=== PATIENT | male | born 1950 | race Caucasian/White ===

== ENCOUNTER 2021-09-23 08:59 | Day surgery (SDC) | payer MEDICARE, BC ==
[2021-09-18 12:39] VITALS: BMI 36.2
[2021-09-23] MEDS ORDERED: Heparin 10,000 UNITS/ 10 ML VIAL ONE (09:28)
[2021-09-23] MEDS ORDERED: Isoproterenol 0.2 MG/1 ML AMP ONE (09:28)
[2021-09-23] MEDS ORDERED: Heparin 25,000 units/D5W 500 ML ONE (09:28)
[2021-09-23] MEDS ORDERED: Protamine Sulfate 50 MG/5 ML VIAL ONE (09:28)
[2021-09-23] MEDS ORDERED: Fentanyl 100 MCG/2 ML VIAL ONE (12:32)
[2021-09-23] MEDS ORDERED: Lidocaine 1% (PF) 30 ML VIAL ONE (12:33)
[2021-09-23] MEDS ORDERED: Phenylephrine 10 MG/ML VIAL ONE (12:34)
[2021-09-23] MEDS ORDERED: Rocuronium Bromide 10 MG/ML (10ML VIAL) ONE (13:23)
[2021-09-23] MEDS ORDERED: PROPOFOL 200 MG/20 ML VIAL ONE (13:23)
[2021-09-23] MEDS ORDERED: Lidocaine 1% PF 5 ML VIAL ONE (13:23)
[2021-09-23] MEDS ORDERED: Sucralfate 1 GM TAB PO SCH (17:30)
== END 2021-09-23 20:55 | disposition home or self-care (01) ==
LOC: SDC 08:59
PROVIDERS: ATTEND Internal Medicine Cardiovascular Disease
PROC: B244ZZ3 Ultrasonography of Right Heart, Intravascular (ICD-10-PCS; principal; 2021-09-23)
PROC: 02583ZZ Destruction of Conduction Mechanism, Percutaneous Approach (ICD-10-PCS; 2021-09-23)
PROC: 02K83ZZ Map Conduction Mechanism, Percutaneous Approach (ICD-10-PCS; 2021-09-23)
PROC: 4A023FZ Measurement of Cardiac Rhythm, Percutaneous Approach (ICD-10-PCS; 2021-09-23)
PROC: 4A0234Z Measurement of Cardiac Electrical Activity, Percutaneous Approach (ICD-10-PCS; 2021-09-23)
DX: I48.19 Other persistent atrial fibrillation (principal); I48.92 Unspecified atrial flutter; I45.10 Unspecified right bundle-branch block; I11.9 Hypertensive heart disease without heart failure; I08.3 Combined rheumatic disorders of mitral, aortic and tricuspid valves; E78.5 Hyperlipidemia, unspecified; G47.33 Obstructive sleep apnea (adult) (pediatric); Z85.6 Personal history of leukemia; Z86.73 Personal history of transient ischemic attack (TIA), and cerebral infarction without residual deficits; Z87.891 Personal history of nicotine dependence; Z79.01 Long term (current) use of anticoagulants; Z79.899 Other long term (current) drug therapy; Z88.0 Allergy status to penicillin; Z88.8 Allergy status to other drugs, medicaments and biological substances
CPT/HCPCS: 85347; 92960; 93613; 93623; 93655; 93656; 93657; 93662; C1732 ×2; C1760; 93005; C1759; J1644; J2001; J2370; J2704; J2720; J3010

== ENCOUNTER 2021-11-04 08:58 | Day surgery (SDC) | payer MEDICARE, BC ==
[2021-11-03 11:19] VITALS: BMI 36.2
[2021-11-04] MEDS ORDERED: PROPOFOL 40 ML ONE (11:19)
[2021-11-04] MEDS ORDERED: Lidocaine 1% PF 5 ML VIAL ONE ×2 (11:19→11:21)
[2021-11-04] MEDS ORDERED: PROPOFOL 200 MG/20 ML VIAL ONE (11:21)
== END 2021-11-04 12:49 | disposition home or self-care (01) ==
LOC: SDC 08:58
PROVIDERS: ATTEND Internal Medicine Cardiovascular Disease
PROC: 5A2204Z Restoration of Cardiac Rhythm, Single (ICD-10-PCS; principal; 2021-11-04)
DX: I48.4 Atypical atrial flutter (principal); I11.9 Hypertensive heart disease without heart failure; E78.00 Pure hypercholesterolemia, unspecified; I45.10 Unspecified right bundle-branch block; E78.5 Hyperlipidemia, unspecified; G47.33 Obstructive sleep apnea (adult) (pediatric); Z85.6 Personal history of leukemia; Z86.73 Personal history of transient ischemic attack (TIA), and cerebral infarction without residual deficits; Z86.79 Personal history of other diseases of the circulatory system; Z87.891 Personal history of nicotine dependence; Z79.01 Long term (current) use of anticoagulants; Z79.899 Other long term (current) drug therapy; Z88.0 Allergy status to penicillin; Z88.8 Allergy status to other drugs, medicaments and biological substances; Z98.890 Other specified postprocedural states
CPT/HCPCS: 92960; 93005; 93010; J2704

== ENCOUNTER 2023-01-19 06:12 | Day surgery (SDC) | payer MEDICARE, BC ==
[2023-01-17 10:02] VITALS: BMI 36.2
[2023-01-17 10:58] LABS: Hematocrit 45.6 % (38.8-50.0); Hemoglobin 15.1 g/dL (13.5-17.5); Mean Corpuscular HGB CONC 33.1 g/dL (32.0-36.0); Mean Corpuscular Hemoglobin 30.3 pg (27.0-33.0); Mean Corpuscular Volume 91.6 fl (81.2-95.1); Mean Platelet Volume 10.8 fl (7.4-10.4); Platelet Count 200 10x3/uL (150-450); RBC Distribution Width 13.4 % (11.5-14.5); Red Blood Cell (RBC) Count 4.98 10x6/uL (4.32-5.72); White Blood Cell (WBC) Count 23.4 10x3/uL (3.5-10.5)
[2023-01-17 11:28] LABS: Anion Gap 13 mmol/L (10-20); BUN (Urea Nitrogen) 13 mg/dL (8.4-25.7); Calc. Creatinine Clearance 114 mL/min (70-130); Calcium 9.2 mg/dL (7.8-10.44); Carbon Dioxide 28 mmol/L (23-31); Chloride 103 mmol/L (98-107); Estimated GFR 84; Glucose 100 mg/dL (83-110); Potassium 3.9 mmol/L (3.5-5.1); Sodium 140 mmol/L (136-145)
[2023-01-17 11:32] LABS: PTT 31.6 sec (22.0-33.0); Prothrombin Time 10.9 sec (9.5-12.1)
[2023-01-19] MEDS ORDERED: Heparin 25,000 units/D5W 500 ML ONE (07:04)
[2023-01-19] MEDS ORDERED: Heparin 10,000 UNITS/ 10 ML VIAL ONE (07:04)
[2023-01-19] MEDS ORDERED: Protamine Sulfate 50 MG/5 ML VIAL ONE (07:04)
[2023-01-19] MEDS ORDERED: fentaNYL 50 mcg/mL 1 mL Vial ONE (09:17)
[2023-01-19] MEDS ORDERED: Phenylephrine 10 MG/ML VIAL ONE (09:18)
[2023-01-19] MEDS ORDERED: SUGAMMADEX SODIUM 200 MG/2 ML VIAL ONE (09:18)
[2023-01-19] MEDS ORDERED: Vasopressin 20 UNITS/ML VIAL ONE (09:18)
[2023-01-19] MEDS ORDERED: Rocuronium Bromide 10 MG/ML (10ML VIAL) ONE (09:24)
[2023-01-19] MEDS ORDERED: Ondansetron PF 4 MG/2 ML Vial ONE (09:24)
[2023-01-19] MEDS ORDERED: Lidocaine 1% PF 5 ML VIAL ONE (09:24)
[2023-01-19] MEDS ORDERED: Dexamethasone 20 MG/5 ML VIAL ONE (09:24)
[2023-01-19] MEDS ORDERED: PROPOFOL 200 MG/20 ML VIAL ONE (09:24)
[2023-01-19] MEDS ORDERED: Glycopyrrolate 0.2 MG/ML 5 ML SYRINGE ONE (09:24)
[2023-01-19] MEDS ORDERED: NEOSTIGMINE 3 MG/3 ML SYR 3 MG/3 ML SYRINGE ONE (09:24)
[2023-01-19] MEDS ORDERED: Succinylcholine Chloride 100 MG/5 ML SYRINGE FS ONE (09:24)
[2023-01-19] MEDS ORDERED: Isoproterenol 0.2 MG/1 ML AMP ONE (09:30)
== END 2023-01-19 16:40 | disposition home or self-care (01) ==
LOC: SDC 06:12
PROVIDERS: ATTEND Internal Medicine Cardiovascular Disease
DX: I48.3 Typical atrial flutter (principal); I48.4 Atypical atrial flutter; I48.19 Other persistent atrial fibrillation; I45.10 Unspecified right bundle-branch block; I10 Essential (primary) hypertension; E78.5 Hyperlipidemia, unspecified; G47.33 Obstructive sleep apnea (adult) (pediatric); H35.30 Unspecified macular degeneration; I48.91 Unspecified atrial fibrillation; Z87.891 Personal history of nicotine dependence; Z88.0 Allergy status to penicillin; Z88.8 Allergy status to other drugs, medicaments and biological substances; Z79.899 Other long term (current) drug therapy; Z86.73 Personal history of transient ischemic attack (TIA), and cerebral infarction without residual deficits; Z86.79 Personal history of other diseases of the circulatory system; Z79.01 Long term (current) use of anticoagulants; Z98.890 Other specified postprocedural states
CPT/HCPCS: 80048; 85027; 85347 ×2; 85610; 85730; 93005; 93312; 93622; 93623; 93656; 93657; C1732 ×2; C1759; C1760; C1884; C1893; C1894 ×2; J3010; J1100; J1644; J2370; J2405; J2704; J2720